=== PATIENT | male | born 1980 | race African-American/Black ===

== ENCOUNTER 2018-09-22 21:03 | Emergency (ER) | payer SELFPAY ==
--- NOTE | 2018-09-22 21:22 | ED Physician Documentation ---
General Adult - HISTORIAN Historian: patient, paramedics - HPI Stated Complaint: "fall from roof," methamphetamine use Chief Complaint: General Adult Onset: minutes Timing: still present Severity: moderate Further Comments: yes (Pt is a 37 yo male who EMT's say was acting oddly and was running apparently thinking he was being chased by police, though he may not have been chased. Pt states that he fell from a roof while trying to run away and injured his L side and briefly lost consciousness when he fell. Pt complains also of pain in both hands from his fall. Pt is brought to ER by law enforcement who have a warrant for him.) - ROS CONST: other (Pt is an unreliable historian) EYES/ENT: problems with vision (blurry vision after fall, now much improved) CVS/RESP: none GI/: abdominal pain (LLQ pain) MS/SKIN/LYMPH: other (linear abrasion to L lower abd wall ("from barbed wire")) NEURO/PSYCH: anxiety - PAST HX Past History: other (drug abuse) Allergies/Adverse Reactions: Allergies Allergy/AdvReac Type Severity Reaction Status Date / Time No Known Allergies Allergy Verified 09/22/18 22:07 Home Medications: Ambulatory Orders Medication Instructions Recorded NK 09/22/18 - SOCIAL HX Smoking History: cigarettes Alcohol Use: occasionally Drug Use: marijuana, methamphetamines - FAMILY HX Family History: No - REVIEWED ASSESSMENTS Nursing Assessment Reviewed: Yes Vitals Reviewed: Yes Progress - Progress Progress: CT brain w/o contrast: No acute intracranial process. CT abd/pelvis w iv contrast: Negative study. x-ray b/l hands: Examination of the right and left hands in palmar, lateral and oblique views fails to demonstrate evidence of fracture, dislocation or other bone or joint pathology. Ativan 1 mg IV Tdap 0.5 ml IM UTI Rocephin 500 mg IV in ER Azithromycin 1000 mg po in ER Triple Antibiotic to abd wall wound. Apply topical antibiotic such as Bacitracin, Neosporin, or Triple Antibiotic to abrasion on abdomen twice daily for 5 days. Pt given Abx packets. Discharge to law enforcement custody. General Adult Physical Exam - PHYSICAL EXAM GENERAL APPEARANCE: moderate distress (anxious/paranoid) EENT: eye inspection normal, pharynx normal, TM's nml NECK: normal inspection, supple RESPIRATORY: no resp distress, chest non-tender, breath sounds normal CVS: reg rate & rhythm, heart sounds normal ABDOMEN: soft, normal bowel sounds, tenderness (LLQ, with fresh scar on abd wall ("from barbed wire".) BACK: normal inspection, no CVA tenderness SKIN: other (abrasions on hands b/l; scar on L lower abd wall) EXTREMITIES: normal range of motion, other (hand abrasions) NEURO: oriented X3, motor nml, sensation nml, other (anxious) Discharge Clincal Impression: hematuria, methamphetamine use, abrasions, anxiety Referrals: Primary Doctor,No [Primary Care Provider] - Condition: Stable Disposition: 01 HOME, SELF-CARE Decision to Admit: NO Decision Time: 23:39
[2018-09-22] MEDS ORDERED: 0.9 % SODIUM CHLORIDE 1,000 ML IV ONE (21:26)
[2018-09-22 22:21] LABS: EOSINOPHILS % 1.1 % (0.0-6.8); MEAN CORPUSCULAR HEMOGLOBIN 30.3 pg (28.0-34.0); MONOCYTES % 6.5 % (0.0-11.0)
[2018-09-22 22:22] LABS: BASOPHILS % 0.6 (0.0-1.5); NEUTROPHILS # 13.1 # k/uL (1.4-7.7)
[2018-09-22 22:32] LABS: eGFR (Non-African) > 60
[2018-09-22] MEDS ORDERED: LORazepam 2 MG/ML VIAL IVP ONE (23:06)
[2018-09-22] MEDS ORDERED: cefTRIAXone SODIUM 250 MG INJ IV ONE (23:07)
[2018-09-22] MEDS ORDERED: AZITHROMYCIN 250 MG TABLET PO ONE (23:07)
[2018-09-22] MEDS ORDERED: 0.9 % SODIUM CHLORIDE 50 ML IV ONE (23:10)
[2018-09-22] MEDS ORDERED: DIPH,PERTUSS(ACELL),TET VAC/PF 0.5 ML DISP.SYRIN IM ONE (23:26)
[2018-09-22] MEDS ORDERED: NEOMYCIN/BACITRACIN/POLYMYXINB OINT 15 GM TP ONE (23:27)
[2018-09-23 03:14] VITALS: BP 125/77
--- NOTE | 2018-09-23 03:42 | Diagnostic Imaging Report ---
RADHA MELENDEZ [facility] [address] [facility] [address] [address] Report Submission Date: Sep 22, 2018 10:58:[address] SECURITY Patient Study Name: ELIJAH LEI Date: Sep 22, 2018 10:26:46 [address] SECURITY Modality Type: DX Gender: M Description: BILAT HANDS 3 VIEWS : 84 Institution: [facility] Physician: RADHA MELENDEZ Three views of the hand bilaterally Clinical history: Fall from a roof. Bilateral hand pain. Findings: Examination of the right and left hands in palmar, lateral and oblique views fails to demonstrate evidence of fracture, dislocation or other bone or joint pathology. Electronically signed on Sep 22, 2018 10:58:[address] SECURITY by: Nelson QUIROZ
--- NOTE | 2018-09-23 03:43 | Diagnostic Imaging Report ---
RADHA MELENDEZ [facility] [address] [facility] [address] [place], [place]. [address] Report Submission Date: Sep 22, 2018 10:38:25 PM RFID ANALYST Patient Study Name: ELIJAH LEI Date: Sep 22, 2018 10:07:53 PM RFID ANALYST Modality Type: CT\SR Gender: M Description: CT ABD PELVIS W/ CON : 84 Institution: [facility] Physician: RADHA MELENDEZ CT of the abdomen and pelvis with contrast Clinical history: Fall from a roof. Left lower abdominal wall laceration. Contrast administered: 95 mL of Omnipaque. Technique: CT the abdomen and pelvis is performed with intravenous infusion of contrast. Sagittal and coronal reconstructions were performed by the technologist. Findings: Visualized lung bases are clear. Liver and spleen demonstrate normal attenuation without focal defect. The gallbladder is normally distended. There is no pancreatic or adrenal abnormality. The kidneys demonstrate symmetric enhancement. There is no retroperitoneal mass or significant adenopathy. Bladder is unremarkable. There is no free fluid in the pelvis or abdomen. Gas and stool are present throughout the colon. Bony structures are intact. Impression: 1. Negative study. Electronically signed on Sep 22, 2018 10:38:25 PM RFID ANALYST by: Nelson QUIROZ
--- NOTE | 2018-09-23 03:44 | Diagnostic Imaging Report ---
RADHA MELENDEZ [facility] [address] [facility] [address] [place], [place]. [address] Report Submission Date: Sep 22, 2018 10:29:30 PM WHIPPED TOPPING MIXER Patient Study Name: ELIJAH LEI Date: Sep 22, 2018 9:58:50 PM WHIPPED TOPPING MIXER Modality Type: CT\\SR Gender: M Description: CT BRAIN W/O CONTRAST : 84 Institution: [facility] Physician: RADHA MELENDEZ CT brain noncontrast Date of study: CLINICAL HISTORY: per pt "fall from roof with LOC TECHNIQUE: 5 mm contiguous axial images of the brain, noncontrast with sagittal and coronal multiplanar reconstructions. FINDINGS: There is no evidence of intracranial mass effect, hemorrhage, or acute infarct. The lateral ventricles are symmetrical and the 4th ventricle is midline without shift. No acute brain parenchymal changes or extra-axial fluid collections are identified. The posterior fossa contents are within normal limits. The calvarium is intact. The visualized sinuses and mastoid air cells are clear. IMPRESSION: No acute intracranial process. Electronically signed on Sep 22, 2018 10:29:30 PM WHIPPED TOPPING MIXER by: Nelson QUIROZ
[2018-09-25 07:33] LABS: APPEARANCE,URINE CLOUDY (CLEAR); COLOR,URINE AMBER (YELLOW); OCCULT BLOOD,URINE 1+ (NEGATIVE)
[2018-09-25 07:34] LABS: CANNABINOIDS NON NEGATIVE ng/mL (< 50); METHYLENEDIOXYMETHAMPHETAMINE NEGATIVE ng/mL (<500)
[2018-09-27 12:21] LABS: CANNABINOIDS CONFIRMATION Negative ng/mL (<15)
== END 2018-09-23 01:00 | disposition home or self-care (01) ==
LOC: ED 21:03
DX: S60.512A Abrasion of left hand, initial encounter (principal); S60.511A Abrasion of right hand, initial encounter; S30.811A Abrasion of abdominal wall, initial encounter; F41.9 Anxiety disorder, unspecified; F15.90 Other stimulant use, unspecified, uncomplicated; R31.9 Hematuria, unspecified; W13.2XXA Fall from, out of or through roof, initial encounter; Y93.02 Activity, running; Y92.9 Unspecified place or not applicable
CPT/HCPCS: 36415; 70450; 73130; 74177; 80053; 80320; 80377; 81002; 85025; 85610; 85730; 90471; 90715; 96365; 96375; 99283; 99285; J0696; J2060; J7030; Q9967; G0480; G0481; S1016